=== PATIENT | female | born 1950 | race Caucasian/White ===

== ENCOUNTER 2022-10-19 07:53 | Outpatient (CLI) | payer MEDICARE, BC, SELFPAY | END 2022-10-19 07:54 | disposition home or self-care (01) | LOC: CT 07:56 | PROVIDERS: PCP Family Medicine; Visit Provider Orthopaedic Surgery Sports Medicine | DX: M75.101 Unspecified rotator cuff tear or rupture of right shoulder, not specified as traumatic (principal); M67.921 Unspecified disorder of synovium and tendon, right upper arm; M19.011 Primary osteoarthritis, right shoulder | CPT/HCPCS: 73200 ==

== ENCOUNTER 2022-11-22 09:41 | Outpatient (CLI) | payer MEDICARE, BC, SELFPAY ==
[2022-11-22 14:29] LABS: SARS PCR* Negative SARS-CoV-2 (Negative)
== END 2022-11-22 09:42 | disposition home or self-care (01) ==
PROVIDERS: PCP Family Medicine; Visit Provider Orthopaedic Surgery Sports Medicine
DX: Z01.812 Encounter for preprocedural laboratory examination (principal); Z20.822 Contact with and (suspected) exposure to COVID-19
CPT/HCPCS: 87635

== ENCOUNTER 2022-11-23 07:49 | Day surgery (SDC) | payer MEDICARE, BC, SELFPAY ==
[2022-11-23] VITALS (23 sets, daily range): BP systolic 76–144; BP diastolic 28–94; PULSE 61–83; RESP 15–16; TEMP 35.7–37; O2SAT 90–99; BMI 42.0
[2022-11-23] MEDS: LACTATED RINGERS 1000 ML 1,000 ML 100 ML IV (07:50)
[2022-11-23] MEDS: ACETAMINOPHEN 500 MG TABLET 1000 MG PO ×3 (08:08→20:49)
[2022-11-23] MEDS: CELECOXIB 200 MG CAPSULE PO (08:08)
[2022-11-23] MEDS: OXYCODONE (CR) 10 MG TAB.ER.12H PO (08:09)
[2022-11-23] MEDS: SODIUM CHLORIDE 0.9 % (FLUSH) 10 ML SYRINGE IVF (08:09)
--- NOTE | 2022-11-23 08:28 | CRLHL7_ITS ---
For Patients: As a result of the Cures Act, medical imaging exams and procedure reports are released immediately into your electronic medical record. You may view this report before your referring provider. If you have questions, please contact your health care provider. Indication: post op right total shoulder arthroplasty Technique: Two views right shoulder Findings/Impression: Hardware from a right shoulder arthroplasty is in satisfactory position. Bone alignment is normal. No sign of acute fracture. Postop changes are within normal limits. Dictated by Durga Aquino MD @ 11/23/2022 1:03:04 PM (Electronically Signed)
[2022-11-23] MEDS: MIDAZOLAM HCL 1 MG/ML inj IVP (09:31)
[2022-11-23] MEDS: fentaNYL 100 MCG/2 ML inj IVP (09:31)
--- NOTE | 2022-11-23 09:46 | SUR.PREOP ---
TIME?OUT:?0930 PT/RN/MDA?VERIFICATION?OF?SURGICAL?SITE Right Shoulder,?PROCEDURE Supraclavicular Nerve Block,?AND?CONSENT OBTAINED?PRIOR?TO?INVASIVE?PROCEDURE.
--- NOTE | 2022-11-23 09:47 | W.PM.NB ---
Nerve Block Nerve Block Time Seen by Provider: 09:30 Date Seen: 11/23/22 Type of block requested by surgeon for post-operative analgesia: supraclavicular Side: right Time out performed: Yes Verification of patient name: Yes Verification of date of : Yes Site marking: site marked Name of person performing procedure: marta Continuous monitoring Was continuous monitoring of O2 sat, B/P, vehicle monitor technician, recorded every 15 minutes?: Yes Procedure Checklist: sterile prep, needles and gloves Ultrasound guided. Images saved: Yes Medications given in 5ml increments after negative aspiration: Ropivicaine %: 0.5 mL: 20 Needle gauge: 22 Decadron (mg): 10 Precedex (mcg): 25 Patient tolerated procedure well: Yes Block Charges Block Charge (with Pro Fee): Brachial Plexus Use of Ultrasound Machine for Block: Yes- US Guidance/pain block
--- NOTE | 2022-11-23 12:06 | PM.ORPRC ---
Procedure Note Date of procedure: 11/23/22 Procedure: PREOPERATIVE DIAGNOSIS: 1. Right shoulder cuff tear arthropathy 2. Right long head of the biceps tendinopathy and tenosynovitis POSTOPERATIVE DIAGNOSIS: 1. Right shoulder cuff tear arthropathy 2. Right long head of the biceps tendinopathy and tenosynovitis PROCEDURE: 1. Right reverse shoulder arthroplasty. 2. Right long head of biceps open tenodesis SURGEON: Howie Diego MD. AMBULATORY NURSE: Roman HIDALGO - Of note, a skilled physical therapy assistant instructor was critical for this case to aid in patient positioning, tissue retraction, limb manipulation/positioning, retraction for glenoid exposure, which was challenging, awareness and protection of critical structures, and closure. ANESTHESIA: General plus supraclavicular block IMPLANTS: DJ0 surgical Altivate humeral stem size 12 small shell, short with P2 porous coating vitamin E neutral poly small socket insert RSP glenoid base plate P2 porous coating with 3 perimeter locking screws 32 neutral glenosphere with retaining screw COMPLICATIONS: None evident INDICATIONS: The patient is a pleasant 72-year-old female who has experienced severe right shoulder pain and difficulty with use. Workup included imaging which revealed severe osteoarthrosis along with concern for rotator cuff quality. Physical exam was consistent with associated pain. Given the deformity, the dysfunction, and the pain, and failure of nonoperative management, recommendation was made for surgery. DESCRIPTION OF PROCEDURE: Following a thorough discussion of risks, benefits, and alternatives, consent was obtained and the left shoulder was marked. The patient was brought to the operating room and placed supine on the operating table. Induction of anesthesia was undertaken. 2 g IV Ancef and 1 g tranexamic acid was administered within 1 hr of incision preoperatively. Appropriate time-out was performed identifying proper patient, site, and procedure. The operative extremity was prepped and draped in the appropriate sterile fashion using ChloraPrep after the patient was positioned in the lazy beach chair position with head in neutral alignment and all bony prominences well padded. A longitudinal incision was made for deltopectoral approach. Deltoid was retracted laterally. Cephalic vein was identified and retracted laterally as well. Vein was spared/protected throughout the case. The clavipectoral fascia was identified and divided longitudinally staying lateral to the conjoined tendon / coracoid. The conjoined tendon was protected with a blunt Hohmann. The long head of the biceps tendon was identified and the bicipital sheath released. The upper 1/3 of the pectoralis major was also released from its insertion. The long head of the biceps was tenodesed to the pectoralis major tendon. The remaining proximal tendon tissue was excised. The rotator cuff was inspected and found to have good integrity with the subscapularis but fair integrity with a supraspinatus], and a decision for a reverse shoulder arthroplasty was confirmed. The long head of biceps, of note, was significant flattened, thickened, with abundant tenosynovitis. A subscapularis cuff of tissue was left via tenotomy for later repair with the remaining subscapularis released in a subperiosteal fashion with the Bovie. This was tagged for later repair. The 3 sisters were cauterized. The upper subscapularis was released from the capsule with a curved Carr scissors towards the glenoid. The inferior subscapularis was divided from the capsular tissue on its caudal surface with particular caution for the axillary nerve. This was palpated anterior to the subscapularis both prior to and near the finish of the case. Inferior humeral head osteophytes were excised with caution taken throughout the case with regards to the axillary nerve. The humerus was dislocated, and humeral head cut completed. Then a protector plate was applied. We turned our attention to the glenoid. The humerus was retracted posteriorly. The subscap was protected anteriorly and the labrum/long head biceps origin was excised circumferentially. The capsule was released along the anterior and inferior portions of the glenoid cautiously with a Martinez elevator being careful not to penetrate deep. The glenoid had appropriate exposure, and was prepared with the cannulated system with a target of approximately 5-10? of inferior tilt and neutral anteversion (patient had 22 ? of retroversion initially). [Utilizing the match Point 3D printed guide, the guide pin was placed. The 3D printed jig removed and after placing the guide pin, the tap was placed followed by the glenoid reaming. The real base plate was opened, and inserted, and excellent compression/purchase was achieved with the central screw. Peripheral screws were then drilled, measured, and placed. The glenosphere was then placed consistent with the preoperative plan utilizing the above noted glenosphere. After securing the glenosphere with the locking, torque limited screw, attention was turned back to the humerus. A canal finder was placed followed by various reamers by hand. The real humeral stem was then opened and inserted with excellent metaphyseal fit and stability. Trial poly was placed and the shoulder reduced. Excellent reduction and stability achieved with appropriate tension on the conjoined tendon. At this stage, trial implants were removed, and the real implants inserted and the shoulder reduced. A 3 minute Betadine soak was performed followed by a thorough irrigation with normal saline. Subscapularis was repaired with #1 PDS to the cuff of tissue on the lesser tuberosity. Excellent reapproximation of tissue achieved. Hemostasis was found to be appropriate. The deltopectoral interval was reapproximated with 0 Vicryl, subcutaneous and subcuticular closure was then performed with number 2-0 Vicryl and 4-0 Monocryl, respectively. A skilled physical therapy assistant instructor was critical for this case to aid in patient positioning, tissue retraction, limb manipulation/positioning, retraction for glenoid exposure, which was challenging, awareness and protection of critical structures, and closure. PLAN: 1. Sling at all times for the operative upper extremity. 2. AROM of elbow, forearm, wrist, and digits as tolerated. 3. PT/OT consults for education and assistance. 4. Social consult for discharge planning. 5. 23 hr perioperative antibiotics. 6. Early ambulation, and SCDs for DVT prophylaxis. 7. Admit to the hospital for the above 8. Analgesics p.r.n.
[2022-11-23] MEDS: CEFAZOLIN 2 GM in 0.9 % SODIUM CHLORIDE Mini-bag 100 ML IVPB ×2 (12:12→18:21)
[2022-11-23] MEDS: TRANEXAMIC ACID 100 MG/ML INJ 1000 MG IV (12:13)
--- NOTE | 2022-11-23 12:43 | P.ANES_ITS ---
Anesthesia Charges Start Date/Time Anesthesia Start Date: 11/23/22 Anesthesia Start Time: 11:56 Stop Date/Time Anesthesia Stop Date: 11/23/22 Anesthesia Stop Time: 12:45 Summary Extremes of Age - Over 70 or under 1: [employer]
--- NOTE | 2022-11-23 12:44 | W.ANESCHARGE ---
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
--- NOTE | 2022-11-23 14:42 | P.IMCN_ITS ---
Date of Consult Patient: Oly Patient Consult date: 11/23/22 Requesting Physician: Orthopedics Primary Care Provider: Myla Kendall CNP Consult Narrative Reason for consult: 72-year-old female seen for management of medical problems after surgery Narrative: Sol Power is a 72 year old female who underwent right total shoulder arthroplasty under the care of Dr. Diego today. There were no operative complications. Postoperatively she is doing fairly well except she is having relatively low blood pressure. She is not feeling lightheaded, short of breath, chest pain, fever or chills. She does not take any antihypertensive medicines. Prior to surgery today she was feeling well. She has had no recent illness. Preop physical did not identify any significant medical problems. Review of Systems Narrative: Patient reports no recent illness or injury. She has no other health concerns. [facility] Medical History Arthritis ?M19.90 - Unspecified osteoarthritis, unspecified site (ICD-10) Back problem ?M53.9 - Dorsopathy, unspecified (ICD-10) Encounter for preoperative screening laboratory testing for severe acute respiratory syndrome coronavirus 2 (SARS-CoV-2) ?Z01.812 - Encounter for preprocedural laboratory examination (ICD-10) ?Z20.822 - Contact with and (suspected) exposure to covid-19 (ICD-10) Hypercholesteremia ?E78.00 - Pure hypercholesterolemia, unspecified (ICD-10) Obesity ?E66.9 - Obesity, unspecified (ICD-10) Surgical History (Updated 11/23/22 @ 14:49 by Mark Farias MD) H/O section ?Z98.891 - History of uterine scar from previous surgery (ICD-10) History of total right knee replacement (09/06/21) ?Z96.651 - Presence of right artificial knee joint (ICD-10) Family History Sister Diabetes Retinoblastoma High blood pressure Brother Diabetes Bladder cancer Father Stroke Parkinsons Mother No problems noted. Social History (Updated 11/23/22 @ 14:47 by Mark Farias MD) Narrative: She lives alone in a town home in [place]. She has 1 step to get into the house but otherwise lives on 1 level. After her knee surgery last year this went quite well. She has people were going to come and help her when she is at home. Smoking Status: Former smoker What tobacco products do you use: cigarettes Smoking quit date/years: >15 years ago Do you use any of these nicotine containing products: None Second hand tobacco smoke exposure: No How often do you have a drink containing alcohol: monthly or less Alcohol type: beer and wine How many standard drinks containing alcohol do you have on a typical day: 1 or 2 How often do you have six or more drinks on one occasion: Never AUDIT-C Alcohol total score: 1 Non-prescribed substance use: denies use Caffeine: Yes (coffee or tea 1-2 x/wk) service: No Meds Home Medications and Allergies Home Medications Medication Instructions Recorded Confirmed Type acetaminophen 500 mg tablet 500 - 1,000 mg PO Q6H PRN 03/11/22 11/23/22 History calcium carbonate 500 mg-vitamin 1 tab PO DAILY 03/11/22 11/23/22 History D3 10 mcg (400 unit) tablet glucosamine-chondroitin 250 mg-200 1 tab PO DAILY 03/11/22 11/23/22 History mg tablet (Osteo Bi-Flex) omega-3 fatty acids 1,000 mg 1,000 mg PO DAILY 03/11/22 11/23/22 History capsule pravastatin 40 mg tablet 40 mg PO HS 03/11/22 11/23/22 History vitamin A-vitamin C-vit E-min 1 tab PO DAILY 03/11/22 11/23/22 History tablet Allergies Allergy/AdvReac Type Severity Reaction Status Date / Time No Known Allergies Allergy Verified 11/23/22 07:58 Exam Narrative: Exam Narrative: She is alert and appears in no distress. She gives her own history. Head is normal. Neck is supple without mass or adenopathy. Respirations are clear to auscultation. Symmetric breath sounds comparing right to left. Cardiovascular: S1, S2, regular rate and rhythm. Right upper extremity is examined. She has ice pack on her shoulder. She has minimal motion in her fingers. Intact pulses. Slight sensation in her right fingers as well. Other 3 extremities with intact pulses sensation and motion. No edema. Abdomen is soft without tenderness or mass. Const: Vital Signs, click to edit/add: Vital Signs - 24 hr 11/23/22 08:02 11/23/22 09:30 11/23/22 09:35 Temperature 98.6 F Pulse Rate 83 70 68 Respiratory Rate 16 16 16 Blood Pressure 144/94 H 141/73 H 132/63 Pulse Oximetry 97 99 99 Oxygen Delivery Me thod Room Air Nasal Cannula Nasal Cannula Oxygen Flow Rate 2 2 11/23/22 09:40 11/23/22 12:33 11/23/22 12:38 Temperature 97.6 F Pulse Rate 67 70 71 Respiratory Rate 16 16 15 Blood Pressure 127/67 124/77 123/80 Pulse Oximetry 99 94 94 Oxygen Delivery Me thod Nasal Cannula Nasal Cannula Nasal Cannula Oxygen Flow Rate 2 3 3 11/23/22 12:43 11/23/22 12:48 11/23/22 12:53 Temperature Pulse Rate 72 68 72 Respiratory Rate 16 16 16 Blood Pressure 119/77 126/64 109/67 Pulse Oximetry 94 94 94 Oxygen Delivery Me thod Nasal Cannula Room Air Room Air Oxygen Flow Rate 3 0 11/23/22 12:58 11/23/22 13:03 Temperature 97.9 F Pulse Rate 64 70 Respiratory Rate 16 16 Blood Pressure 118/60 104/55 L Pulse Oximetry 94 94 Oxygen Delivery Me thod Room Air Room Air Oxygen Flow Rate 0 0 Documenting provider has reviewed patient's vital signs: yes Assessment and Plan Assessment and plan (1) Status post reverse arthroplasty of right shoulder: Status: Acute (2) Morbid obesity with BMI of 40.0-44.9, adult: Problem comment: BMI 40.6 Status: Acute Plan 72-year-old female status post right shoulder arthroplasty doing well. She is having effective pain control. Routine therapy and pain management. Anticipate discharge to home tomorrow. Total time spent today is 35 minutes, 20 minutes in coordination of care and discussing with patient other providers management postoperative care, pain management.
--- NOTE | 2022-11-23 18:43 | PC.NURSE ---
Pt alert and oriented x4. Pt arrived to Med/Surg floor at 1315 post right shoulder surgery. Pt had soft BP?s during the first hour after arriving to med/surg. Dr. Farias notified. Dr. Farias saw Pt and started a fluid bolus. Pt?s BP started stabilizing after the [address] Farias updated. Pt up with SBA. Pt has had no complaints of pain during shift. Pt?s IV infiltrated DC?d and new IV placed. Pt has had good oral intake and has been saline locked. Pt has voided during shift. Pt has graduated to a regular diet and tolerated well.?
[2022-11-23] MEDS: SENNOSIDES 1 TAB TABLET 2 TAB PO (20:48)
[2022-11-23] MEDS: PRAVASTATIN SODIUM 20 MG TABLET 40 MG PO (20:49)
[2022-11-23] MEDS: SODIUM CHLORIDE 0.9 % (FLUSH) 10 ML SYRINGE 5 ML IVF (21:02)
--- NOTE | 2022-11-23 23:54 | PC.NURSE ---
Pt pleasant and cooperative. Up with standby assist to bathroom and chair. States no pain. Is only taking scheduled Tylenol. Tolerating reg diet. Voiding without difficulty. VSS
[2022-11-24] MEDS: ACETAMINOPHEN 500 MG TABLET 1000 MG PO ×2 (02:33→08:17)
[2022-11-24] MEDS: CEFAZOLIN 2 GM in 0.9 % SODIUM CHLORIDE Mini-bag 100 ML IVPB (02:33)
[2022-11-24 03:00] VITALS: BP 148/65; PULSE 69; RESP 16; TEMP 35.9; O2SAT 95
--- NOTE | 2022-11-24 05:36 | PC.NURSE ---
[id number] Pt slept on and off during night, denies pain to right arm/shoulder. Sensation present to touch, Dressing C/D/I, cyro cuff to R shoulder throughout shift. Pt denies N/V, chest pain, sob, or headache. Pulse present to R extremity, < 3 sec cap refills, pt able to wiggle fingers. Sling in place during night. Ambulating indep/SBA to BR, denies light headed or dizziness when getting up.
[2022-11-24 07:00] VITALS: BP 152/83; PULSE 75; RESP 16; TEMP 35.9; O2SAT 94
[2022-11-24 07:14] LABS: Hematocrit 34.8 % (33.0-51.0); Hemoglobin* 11.9 gm/dL (12.0-16.0); Mean Corpuscular HGB Conc 34 gm/dL (32-36); Mean Corpuscular Hemoglobin 31 pg (26-34); Mean Corpuscular Volume 91 fL (80-100); Platelet Count* 252 K/uL (140-440); Red Blood Count 3.84 m/uL (4.00-5.20); White Blood Count* 9.91 K/uL (4.50-11.00)
[2022-11-24 07:36] LABS: Sodium* 137 mmol/L (135-149)
[2022-11-24 07:37] LABS: Slide Review Reflex No
[2022-11-24 07:39] LABS: Blood Urea Nitrogen* 11 mg/dL (7-30); Creatinine* 0.7 mg/dL (0.5-1.5); Est. Creatinine Clearance* 43.91; Estimated Glomerular Filt Rate 92 ml/min; Potassium* 4.1 mmol/L (3.6-5.1)
[2022-11-24] MEDS: SENNOSIDES 1 TAB TABLET 2 TAB PO ×2 (08:16→08:18)
[2022-11-24] MEDS: OXYCODONE 5 MG TABLET PO (08:18)
--- NOTE | 2022-11-24 09:15 | PM.ORPN ---
Subjective Subjective Date Seen: 11/24/22 Principal diagnosis: Status postop day 1 right reverse total shoulder arthroplasty Interval history: Patient reports doing well. No acute events over night. Pain managed with scheduled /PRN medications and ice. DVT prophylaxis includes bilateral knee high Toño stockings, and SCDs. Denies fevers, chills, aches, N/V, CP, SOB/MARTINEZ, tachycardia, or lightheadedness. Ortho Exam Narrative Exam Narrative: -Patient appears comfortable in recliner; no apparent acute distress -Alert and oriented times 3 -Operative shoulder swollen; soft, supple tissues; no obvious erythema. Ecchymosis minimal distal proximal arm. Warmth appropriate -Surgical dressing clean, dry, intact; no obvious drainage, no erythematous streaking peripheral to the bandage -Bilateral calves soft and supple; no significant swelling, edema, tenderness, erythema, discoloration, warmth, or palpable cords -2+ radial pulse, intact dermatomes and myotomes distally Const Vital Signs, click to edit/add: Vital Signs - 24 hr 11/23/22 09:30 11/23/22 09:35 11/23/22 09:40 Temperature Pulse Rate 70 68 67 Pulse Rate [Right Pulse Oximeter] Respiratory Rate 16 16 16 Blood Pressure 141/73 H 132/63 127/67 Blood Pressure [Left Arm] Pulse Oximetry 99 99 99 Oxygen Delivery Method Nasal Cannula Nasal Cannula Nasal Cannula Oxygen Flow Rate 2 2 2 11/23/22 12:33 11/23/22 12:38 11/23/22 12:43 Temperature 97.6 F Pulse Rate 70 71 72 Pulse Rate [Right Pulse Oximeter] Respiratory Rate 16 15 16 Blood Pressure 124/77 123/80 119/77 Blood Pressure [Left Arm] Pulse Oximetry 94 94 94 Oxygen Delivery Method Nasal Cannula Nasal Cannula Nasal Cannula Oxygen Flow Rate 3 3 3 11/23/22 12:48 11/23/22 12:53 11/23/22 12:58 Temperature Pulse Rate 68 72 64 Pulse Rate [Right Pulse Oximeter] Respiratory Rate 16 16 16 Blood Pressure 126/64 109/67 118/60 Blood Pressure [Left Arm] Pulse Oximetry 94 94 94 Oxygen Delivery Method Room Air Room Air Room Air Oxygen Flow Rate 0 0 11/23/22 13:03 11/23/22 13:15 11/23/22 13:15 Temperature 97.9 F 96.2 F L 96.2 F L Pulse Rate 70 66 Pulse Rate [Right Pulse Oximeter] 66 Respiratory Rate 16 16 16 Blood Pressure 104/55 L Blood Pressure [Left Arm] 94/57 L 94/57 L Pulse Oximetry 94 91 Oxygen Delivery Method Room Air Room Air Oxygen Flow Rate 0 11/23/22 13:15 11/23/22 13:30 11/23/22 13:45 Temperature 96.2 F L 96.2 F L 96.2 F L Pulse Rate Pulse Rate [Right Pulse Oximeter] 66 76 61 Respiratory Rate 16 16 16 Blood Pressure Blood Pressure [Left Arm] 94/57 L 77/28 L 90/67 Pulse Oximetry 91 91 91 Oxygen Delivery Method Room Air Room Air Room Air Oxygen Flow Rate 0 0 11/23/22 14:00 11/23/22 14:15 11/23/22 14:45 Temperature 96.2 F L 96.6 F L 96.6 F L Pulse Rate Pulse Rate [Right Pulse Oximeter] 76 65 63 Respiratory Rate 16 16 16 Blood Pressure Blood Pressure [Left Arm] 76/47 L 110/87 121/58 L Pulse Oximetry 91 91 91 Oxygen Delivery Method Room Air Room Air Room Air Oxygen Flow Rate 0 0 0 11/23/22 15:00 11/23/22 16:00 11/23/22 17:00 Temperature 96.7 F L 96.7 F L 96.7 F L Pulse Rate Pulse Rate [Right Pulse Oximeter] 71 72 75 Respiratory Rate 16 16 16 Blood Pressure Blood Pressure [Left Arm] 115/60 137/80 130/67 Pulse Oximetry 93 93 93 Oxygen Delivery Method Room Air Room Air Room Air Oxygen Flow Rate 0 0 0 11/23/22 18:00 11/23/22 19:00 11/23/22 19:00 Temperature 97.7 F 97.9 F 96.7 F L Pulse Rate Pulse Rate [Right Pulse Oximeter] 76 68 72 Respiratory Rate 16 16 16 Blood Pressure Blood Pressure [Left Arm] 124/89 105/63 132/67 Pulse Oximetry 92 92 93 Oxygen Delivery Method Room Air Room Air Room Air Oxygen Flow Rate 0 0 11/23/22 23:00 11/24/22 03:00 11/24/22 07:00 Temperature 96.8 F L 96.6 F L Pulse Rate Pulse Rate [Right Pulse Oximeter] 72 69 75 Respiratory Rate 16 16 16 Blood Pressure Blood Pressure [Left Arm] 136/83 148/65 H Pulse Oximetry 90 95 Oxygen Delivery Method Room Air Room Air Oxygen Flow Rate 0 0 11/24/22 07:00 Temperature 96.7 F L Pulse Rate Pulse Rate [Right Pulse Oximeter] 75 Respiratory Rate 16 Blood Pressure Blood Pressure [Left Arm] 152/83 H Pulse Oximetry 94 Oxygen Delivery Method Room Air Oxygen Flow Rate 0 Assessment and Plan Assessment and plan (1) Status post reverse arthroplasty of right shoulder: Problem details: Right reverse shoulder arthroplasty, and long head of biceps open tenodesis (11/23/2022, Dr. Diego) Status: Acute (2) Morbid obesity with BMI of 40.0-44.9, adult: Problem details: BMI 40.6 Status: Acute Plan - Complete 23 hour perioperative antibiotics. - PT/OT consult for education and assistance. - Social work consult for discharge planning - Prescribed analgesics as needed - DVT prophylaxis: Bilateral knee high Toño Hose stockings and SCDs - Anticipation is for discharge to home with family 11/24/2022 if the patient remains medically stable, pain is controlled, and they are safe with mobilization.
--- NOTE | 2022-11-24 09:19 | P.DS_ITS ---
DS: Providers Provider Date Seen: 11/24/22 Date of admission: Med/Surg Recovery 11/23/2022 Primary care physician: Myla Kendall CNP Consults: 11/23/22 13:53 Consult to Occupational Therapy [CONS] Routine Comment: Reason(s) for OT Consult:: Evaluate and Treat Any Restrictions?:: See Comment Comment: ROM elbow, forearm, wrist, digits PRN Shoulder pendulums okay No active shoulder ROM Consult to Physical Therapy [CONS] Routine Comment: Reason(s) for PT Consult:: Evaluate and Treat Any Restrictions?:: No Restrictions Consult to Physician [CONS] Routine Comment: Consulting Provider: Hospitalists Has provider been notified: No Consult to Manager Grocery [CONS] Routine Comment: Reason for Consult:: Discharge Planning Needs Attending Physician on discharge: Howie Diego MD Date of Discharge: 11/24/22 DS: Diagnosis Discharge Diagnosis (1) Status post reverse arthroplasty of right shoulder: Status: Acute Problem details: Right reverse shoulder arthroplasty, and long head of biceps open tenodesis (11/23/2022, Dr. Diego) DS: Summary Hospital Course Hospital Course: The patient has a history of right shoulder cuff tear arthropathy. After appropriate preoperative evaluation, the patient underwent right reverse total shoulder arthroplasty and long head biceps tenodesis. Postoperatively they progressed to PT/OT and were felt ready and prepared for discharge to home with appropriate pain medication and anticoagulation medications. Status at Discharge Functional status at discharge: independent ambulation Overall status at discharge: patient is progressing back to baseline Time Spent with Patient Time attestation: Total time spent providing and/or coordinating discharge services: Time spent: Less than 30 minutes Exam Const: Vital Signs, click to edit/add: Vital Signs - 24 hr 11/23/22 09:30 11/23/22 09:35 11/23/22 09:40 Temperature Pulse Rate 70 68 67 Pulse Rate [Right Pulse Oximeter] Respiratory Rate 16 16 16 Blood Pressure 141/73 H 132/63 127/67 Blood Pressure [Le ft Arm] Pulse Oximetry 99 99 99 Oxygen Delivery Me thod Nasal Cannula Nasal Cannula Nasal Cannula Oxygen Flow Rate 2 2 2 11/23/22 12:33 11/23/22 12:38 11/23/22 12:43 Temperature 97.6 F Pulse Rate 70 71 72 Pulse Rate [Right Pulse Oximeter] Respiratory Rate 16 15 16 Blood Pressure 124/77 123/80 119/77 Blood Pressure [Le ft Arm] Pulse Oximetry 94 94 94 Oxygen Delivery Me thod Nasal Cannula Nasal Cannula Nasal Cannula Oxygen Flow Rate 3 3 3 11/23/22 12:48 11/23/22 12:53 11/23/22 12:58 Temperature Pulse Rate 68 72 64 Pulse Rate [Right Pulse Oximeter] Respiratory Rate 16 16 16 Blood Pressure 126/64 109/67 118/60 Blood Pressure [Le ft Arm] Pulse Oximetry 94 94 94 Oxygen Delivery Me thod Room Air Room Air Room Air Oxygen Flow Rate 0 0 11/23/22 13:03 11/23/22 13:15 11/23/22 13:15 Temperature 97.9 F 96.2 F L 96.2 F L Pulse Rate 70 66 Pulse Rate [Right Pulse Oximeter] 66 Respiratory Rate 16 16 16 Blood Pressure 104/55 L Blood Pressure [Le ft Arm] 94/57 L 94/57 L Pulse Oximetry 94 91 Oxygen Delivery Me thod Room Air Room Air Oxygen Flow Rate 0 11/23/22 13:15 11/23/22 13:30 11/23/22 13:45 Temperature 96.2 F L 96.2 F L 96.2 F L Pulse Rate Pulse Rate [Right Pulse Oximeter] 66 76 61 Respiratory Rate 16 16 16 Blood Pressure Blood Pressure [Le ft Arm] 94/57 L 77/28 L 90/67 Pulse Oximetry 91 91 91 Oxygen Delivery Me thod Room Air Room Air Room Air Oxygen Flow Rate 0 0 11/23/22 14:00 11/23/22 14:15 11/23/22 14:45 Temperature 96.2 F L 96.6 F L 96.6 F L Pulse Rate Pulse Rate [Right Pulse Oximeter] 76 65 63 Respiratory Rate 16 16 16 Blood Pressure Blood Pressure [Le ft Arm] 76/47 L 110/87 121/58 L Pulse Oximetry 91 91 91 Oxygen Delivery Me thod Room Air Room Air Room Air Oxygen Flow Rate 0 0 0 11/23/22 15:00 11/23/22 16:00 11/23/22 17:00 Temperature 96.7 F L 96.7 F L 96.7 F L Pulse Rate Pulse Rate [Right Pulse Oximeter] 71 72 75 Respiratory Rate 16 16 16 Blood Pressure Blood Pressure [Le ft Arm] 115/60 137/80 130/67 Pulse Oximetry 93 93 93 Oxygen Delivery Me thod Room Air Room Air Room Air Oxygen Flow Rate 0 0 0 11/23/22 18:00 11/23/22 19:00 11/23/22 19:00 Temperature 97.7 F 97.9 F 96.7 F L Pulse Rate Pulse Rate [Right Pulse Oximeter] 76 68 72 Respiratory Rate 16 16 16 Blood Pressure Blood Pressure [Le ft Arm] 124/89 105/63 132/67 Pulse Oximetry 92 92 93 Oxygen Delivery Me thod Room Air Room Air Room Air Oxygen Flow Rate 0 0 11/23/22 23:00 11/24/22 03:00 11/24/22 07:00 Temperature 96.8 F L 96.6 F L Pulse Rate Pulse Rate [Right Pulse Oximeter] 72 69 75 Respiratory Rate 16 16 16 Blood Pressure Blood Pressure [Le ft Arm] 136/83 148/65 H Pulse Oximetry 90 95 Oxygen Delivery Me thod Room Air Room Air Oxygen Flow Rate 0 0 11/24/22 07:00 Temperature 96.7 F L Pulse Rate Pulse Rate [Right Pulse Oximeter] 75 Respiratory Rate 16 Blood Pressure Blood Pressure [Le ft Arm] 152/83 H Pulse Oximetry 94 Oxygen Delivery Me thod Room Air Oxygen Flow Rate 0 DS: Data Data Completed and Pending Labs on day of discharge: Labs from last 24 hours 11/24/22 06:58 WBC 9.91 RBC 3.84 L Hgb 11.9 L Hct 34.8 MCV 91 MCH 31 MCHC 34 Plt Count 252 Sodium 137 Potassium 4.1 BUN 11 Creatinine 0.7 Estimated Creat Clear 43.91 Estimated GFR 92 Discharge Plan Discharge Disposition: Home, Self-Care Discharging Surgeon: Howie Diego Follow-Up Appointment: 1 week PO with Jermaine COVINGTON Prescriptions: New sennosides-docusate sodium [Senna-S] 8.6-50 mg tablet 1 - 4 tab-cap PO BID PRN (Reason: constipation) Qty: 60 0RF Rx Instructions: Hold medication if experiencing loose stools. oxycodone 5 mg tablet 2.5 - 5 mg PO Q4-6H MDD 6 PRN (Reason: pain) Qty: 42 0RF Rx Instructions: Take as needed for postop pain: 2.5mg mild pain, 5mg moderate-severe pain; wean as tolerated. Continued calcium carbonate-vitamin D3 500 mg-10 mcg (400 unit) tablet 1 tab PO DAILY pravastatin 40 mg tablet 40 mg PO HS omega-3 fatty acids 1,000 mg capsule 1,000 mg PO DAILY vitamin A-vitamin C-vit E-min Tablet 1 tab PO DAILY glucosamine-chondroitin [Osteo Bi-Flex] 250-200 mg tablet 1 tab PO DAILY acetaminophen 500 mg tablet 500 - 1,000 mg PO Q6H PRN Activity Level: Activity as Tolerated Activity Detail: Wound: ?Do not remove original dressing; we will remove this at first postop visit in 1 week. Only remove dressing if integrity is in question. ?No immersing wound in water; showering okay; light scrub with your hand and body soap, rinse, dab dry ?Sutures are under the skin, will dissolve; allow surgical glue to come off naturally; do not scrub the wound or apply ointments/lotions ?Call our office with any redness that streaks, excessive drainage from the wound, or wound gapping. Sling: ?Wear at all times unless performing elbow range of motion, or to bathe. No weightbearing operative upper extremity. Ice/Elevate: ?Ice as needed for swelling and discomfort (cryocuff or ice pack); elevate hand/forearm about heart if possible XIANG socks: ?Wear for 1 month, remove for 1 hour 3 times per day ?These are frustrating to take on/off, but are important for blood clot prevention for 1 month after surgery even though this was an upper extremity surgery. Driving: ?Do not drive while taking narcotic pain medication ?Anticipate a few weeks of no driving if you feel uncomfortable driving with one arm Dental: ?No elective dental work for 6 months post-op. If there is an urgent/emergent dental need, contact our office for an antibiotic prescription. Smoking/Alcohol: ?Do not smoke; do no drink alcohol especially when taking postoperative oral narcotic medication Seek Care from you Primary Care Provider if you experience the following issues in the postoperative phase and beyond: ?Bacterial infections such as: pneumonia, bacterial skin infection (cellulitis), UTI, high fever, chills unrelated to the operative body part - call your primary care physician urgently for treatment in hopes to protect your health and the metal implant. Referrals: ?PT, OT per patient preference - evaluate treat reverse total shoulder arthroplasty protocol (ROM, ADLs) Follow up: ?Ortho surgeon follow-up in 6 weeks; repeat radiographs three views operative shoulder ?[facility] visit in 1 week *If there are any acute concerns regarding your surgery, please call our orthopedic clinic ([phone]) Discharge Diet: Regular Patient Instructions: Oxycodone, Rapid Release (By mouth), Senna (By mouth), Surgical Site Infections (DC), Shoulder Arthroplasty (DC) Forms: Work/School Release Follow-up: Myla Kendall CNP [Primary Care Provider] - Jermaine Avila PA-C [Physician Structural Steel Engineer] - 12/02/22 9:10 am ([facility] follow up with Jermaine RAYMOND.) Discharge Orders: Discharge Order (Routine); Ordered 11/24/22 Ordered By: Jermaine Avila
[2022-11-24 09:20] VITALS: BP 104/55; PULSE 66; RESP 16; TEMP 35.9
--- NOTE | 2022-11-24 09:47 | PC.SOCIAL ---
Met with pt and pt's brother in pt's room. Pt states that she is prepared at home to recover and has assistance from her brother today, then will have assistance from her daughter the next three days. Pt is able to call family members at any time beyond the next four days. There are no identified needs from Social Work at this time. Pt may reach out to social work with any additional questions.
--- NOTE | 2022-11-24 09:58 | PC.NURSE ---
DISCHARGE: Pt. alert and oriented x4. Pt. denied N/V/SOB and rated pain 4/10. PRN oxy administered prior to therapy and pt. tolerated well. Pt's right shoulder in sling, cryo cuff to op site. dressing is C/D/I and minimal bruising noted on right arm distal to dressing. Pt. discharged today at 0943, accompanied by brother. IV removed intact and discharge instructions and belongings sheet signed. Pt. verbalized understanding of discharge instructions.
== END 2022-11-24 09:43 | disposition home or self-care (01) ==
LOC: OR 07:49 → MEDSURG 07:53
PROVIDERS: PCP Family Medicine; Visit Provider Orthopaedic Surgery Sports Medicine
PROC: 0RRJ0JZ Replacement of Right Shoulder Joint with Synthetic Substitute, Open Approach (ICD-10-PCS; CPT 23472; principal; 2022-11-23 10:00)
DX: M75.101 Unspecified rotator cuff tear or rupture of right shoulder, not specified as traumatic (principal); M75.21 Bicipital tendinitis, right shoulder; E66.01 Morbid (severe) obesity due to excess calories; Z68.41 Body mass index [BMI] 40.0-44.9, adult
CPT/HCPCS: 23472; 23430; 01638; 36415; 64415; 73030; 76942; 82565; 84132; 84295; 84520; 85027; 97110; 97116; 97161; 97165; 97535; 99100; A9270; C1713; C1776; J0330; J0690; J1100; J2250; J2370; J2704; J2795; J3010; J3490; J7120

== ENCOUNTER 2023-03-14 08:00 | Outpatient (RCR) | payer MEDICARE, BC, SELFPAY ==
--- NOTE | 2022-11-14 20:57 | OT.OPGNE ---
OT Outpatient General/Neuro Eval OT Outpatient General/Neuro Eval Start: 11/11/22 15:34 Freq: Status: Active Protocol: Document 11/11/22 15:34 SMW (Rec: 11/11/22 15:35 SMW [id number]) E-signed By Tanisha Abrams OT OT Outpatient Evaluation Details Type Type Eval Complexity Low Insurance Information Insurance Information Insurance Information Blue [employer] Outpatient History/Precautions Medical/Functional History Medical History Reviewed Yes Prior Level of Function/Mobility Patient lives alone. Patient previously I in all ADLS and mobility. 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 Assessment Assessment Assessment Patient is a 72 year old female referred to outpatient OT for a pre-op for an upcoming RTSA. The patient is left hand dominant. She lives alone, however will have taxi servicer assistance for 4-5 days and partial assistance if needed after that indefinitely . She lives in a ramble style home. She was educated on one handed dressing techniques, post op exercises, sling management, positioning and general shoulder replacement questions. She asked pertinent questions and was able to take notes as needed. Occupational Therapy Treatment Plan - OP Set Goals Goals Set with Patient Yes Goals Goals Within one visit, the patient will be educated on.. 1. one handed dressing techniques, post op exercises, sling management, positioning . goal met Progress met Treatment Plan Treatment Plan Evaluation,Self-Care/Home Management Certification Certification I Certify That: Therapy Services Provided, Therapy Plan Established, Therapy Plan Reviewed Recertification Information Recertification Information Initial Certification Date 11/11/22 Recertification Start Date 11/11/22 Provider Signature Shows Agreement With POC & Medical Necessity Physician Comment/Change Comment or Changes Physician NPI Number #
--- NOTE | 2022-12-09 14:52 | PT.OPEX ---
PT [facility] Outpatient Eval INITIAL EVAL MEDICARE PATIENT REQUIRES SIGNATURE PT [facility] Eval Start: 12/09/22 12:32 Freq: Status: Active Protocol: Document 12/09/22 12:32 NEIL (Rec: 12/09/22 14:50 NEIL [id number]) E-signed By Julio Thompson DPT Physical Therapy Outpatient Evaluation Insurance Information Recert Due Date 03/04/23 Insurance Name Medicare B,[employer] Medical Diagnosis R reverse total shoulder arthroplasty dos 11/23/22 Treating Diagnosis r shoulder pain, muscle weakness limited rom Referring MD may shi Subjective Subjective Glenna comes into 2.5 weeks post op R RTSA. States she has not had much pain the past week which is surprising to her. She is sleeping in a recliner and couch. Has been trying to do some HEP from the hospital PT and thinks they are going well but has some questions on proper technique. Is left hand dominant but does want to get back to using it for driving, ADLS, and sleeping on the R side. Precautions Treatment Precautions/Contraindications sling 6 weeks AAROM at 4-6 weeks Objective Other/Pertinent Objective SHOULDER AROM WNL on L PROM R Flexion: R 110 Abduction:R 95 External Rotation: R 15 degrees in neutral NECK/SHOULDER MMT: WNL on L deferred on L due to precautions TX: pendulums x20 cw, x20 ccw scap sets x 15 counter walk aways into flexion x 10 into scaption x 10 table slides into flexion x10, skilled PROM with stretching at end range to shoulder flexion scaption as tolerated , performed multiple times Assessment Assessment/Impression POST-OP Patient presents with signs and symptoms consistent with diagnosis of R RTSA , s/p 2.5 week post operative. Rehab potential is good. Ward impairments include: decreased ROM and strength of the extremity, and pain/ limitations with functional activities such as lifting reaching pushing pulling carrying driving sleeping . Skilled PT is required to address these ward impairments and to provide and progress with an appropriate home exercise program. 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 within 8 weeks Patient will report/ demonstrate ability to drive 30-45 minutes for community transportation within 8 weeks. 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 Pt will be able to don and doff clothes and brush hair ind without pain within 16 weeks Pt will be independent with HEP within 16 weeks to allow for independence and continued improvement past formal therapy Coordination/Communication With Referral Source Treatment Plan/Direct Interventions Joint Mobilization,Manual Therapy,Neuromuscular Re-ed, Self-Care/Home Management, Therapeutic Activities, Therapeutic Exercises Patient Will Be Discharged From Therapy Completion of LTG(s), Independent w/HEP Evaluation Billing Untimed Code Treatment Minutes 20 Complexity Low Certification Information Initial Certification Date 12/09/22 Ending Certification Date 03/04/23 Physician Comment/Change : Physician NPI Number #
== END 2023-03-14 09:58 | disposition home or self-care (01) ==
PROVIDERS: PCP Family Medicine; Visit Provider Orthopaedic Surgery Sports Medicine
DX: M75.101 Unspecified rotator cuff tear or rupture of right shoulder, not specified as traumatic (principal); M67.921 Unspecified disorder of synovium and tendon, right upper arm; M19.011 Primary osteoarthritis, right shoulder; Z51.89 Encounter for other specified aftercare
CPT/HCPCS: 97012; 97110; 97140; 97161; 97165; 97535

== ENCOUNTER 2024-11-20 09:58 | Outpatient (CLI) | payer MEDICARE, BC, SELFPAY ==
--- NOTE | 2024-11-20 10:15 | CRLHL7_ITS ---
For Patients: As a result of the Century Cures Act, medical imaging exams and procedure reports are released immediately into your electronic medical record. You may view this report before your referring provider. If you have questions, please contact your health care provider. Indication: Right hip pain Comparison: 10/15/2024 Procedure : Informed consent was obtained. The site was marked. Time-out was performed. The skin of the right hip was cleansed with ChloraPrep. A sterile drape was placed. 8 cc of 1 percent lidocaine was administered for superficial anesthesia. Subsequently a 22 gauge spinal needle was introduced into the right hip joint under intermittent fluoroscopic guidance. Injection of 5 cc nonionic Omnipaque 240 contrast confirmed intra-articular location. Subsequently 7 cc of 1 percent lidocaine and 2 cc of 40 milligram/cc Depo-Medrol was then injected into the right hip joint. The needle was removed and hemostasis achieved with direct pressure. A dressing was placed. The patient tolerated the procedure well without immediate complication. Total fluoroscopy time 1.13 minutes. Impression: Successful fluoroscopically guided right hip injection with 80 milligrams of Depo-Medrol. Moderately severe degenerative joint disease noted with degenerative changes involving the synovium. Dictated by Durga Aquino MD @ 11/20/2024 1:13:50 PM (Electronically Signed)
== END 2024-11-20 09:59 | disposition home or self-care (01) ==
LOC: RAD 09:59
PROVIDERS: PCP Family Medicine; Visit Provider Physician Assistant Surgical
DX: M16.11 Unilateral primary osteoarthritis, right hip (principal); M25.551 Pain in right hip
CPT/HCPCS: 20610; 77002; Q9966

== ENCOUNTER 2024-12-26 09:45 | Outpatient (RCR) | payer MEDICARE, BC, SELFPAY ==
--- NOTE | 2024-12-26 10:33 | PT.OPDNX ---
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 Pain in hip was better after taking out side step exercise. -With land based exercise could get to fatigue without pain onset! -With machines at the gym couldn't increase load with hip abduction and knee extension - was too heavy and couldn't do it. -Pool this week has been going . With back stepping going slower but could feel more glut coordination. -Doing bike up to 12 minutes. -Walking around house must use the cane - comes from weakness and pain -Did make appt with spine doctor. Home Exercise Home Exercise Comments Access Code: [email or web address] URL: [email or web address] Date: 10/22/2024 Prepared by: Dannielle Burgos Exercises - Prone Gluteal Sets - 1-2 x daily - 4-5 x weekly - 12-15 reps - 5 sec hold - strength mobility exercise type - Prone Hip Internal and External Rotation AROM - 1-2 x daily - 4-5 x weekly - 10 reps - strength mobility exercise type - Modified Prone Quadriceps Stretch with Strap - 1-2 x daily - 4-5 x weekly - 2-3 reps - 30-45 sec hold - strength mobility exercise type Access Code: [email or web address] URL: [email or web address] Date: 11/14/2024 Prepared by: Dannielle Burgos Exercises - Forward Walking - 1 x daily - 7 x weekly - 2 sets - 5-10 min hold - Mini Squat with Counter Support - 1 x daily - 2-3 x weekly - 2 sets - 8-10 reps - strength exercise type - Standing Hip Abduction - 1 x daily - 2-3 x weekly - 2 sets - 8-10 reps - strength exercise type - Standing March with Counter Support - 1 x daily - 2-3 x weekly - 2 sets - 8-10 reps - mobility exercise type Objective Other/Pertinent Objective Posture: inc?d APT Palpation: hypersensitivity with TTP over greater trochanter. Reduced TTP just posterior to greater trochanter and 1-2 inches of ITB around bony prominence. SLS (30 sec): unable without LOB significant pelvic drop Gait: lateral trunk lean to the R with WB through R LE. Pelvic drop noted RANGE OF MOTION: LE ROM (R/L): -Hip ER90: 60 L / 70 R -Hip IR90: 10 L / 0 R -Hip flex: 120 L / 90 R -Hip Abd supine: limited -Hip ext: lacking nearly 20* from neutral on R side STRENGTH: LE Strength (R/L) -Glut medius 2+ based on functional mobility -Knee extension: 4- R / 4+ L -Hip flexion 2 R / 2+ L SPECIAL TESTS: LE Flexibility (R/L) -Hamstring: -/- -Piriformis: +/+ -Prone knee bend: +/+ -Hip abd: +/+ -Mark Test: + tested supine unable to get hip extended without pain, hip flexion nearly 20* Patient Instructed in Risks/Benefits Yes Therapeutic Exercise Therapeutic Exercise Minutes (minutes) 40 Therapeutic Exercise: To Restore TE: Indicated for improvement Functional Status in strengthening and mobility. -Handouts with written instructions and photographs of exercises were issued to the patient for exercises to be included in HEP. Answered patient questions regarding POC, and mobility/stretches to perform if pain occurs -NuStep WL 3, UE 9, seat 10 x 8 min -Back ext machine 40# x 10 reps. 50# x 10 reps Cable machine -Standing sh ext 7.5 load bilat x 10 reps -Standing rows staggered 7.5 load x 10 reps -Seated bicep curl 5# 2 x 10 reps bilat -Seated UE press in front of body yellow wand 2 x 8 reps Treatment Minutes Timed Code Treatment Minutes 40 Total Treatment Time 40 Billing Units Therapeutic Exercise Units 3 Assessment/Impression Assessment/Impression No pain flare during session. Near maximal cues for breathing technique with all exercises. Targeted improving pt awareness of core engagement with all exercises while focusing on coordination of TA with movement. Pt to trial different cable exercises at the gym as able. Plan of Care Physical Therapy Goals STG (within 6 visits) 1) Pt will initiate HEP without increased pain/ symptoms - MET 2) Pt will demonstrate ability to isometrically activate TA and gluts with minimal compensations in order to improve lumbopelvic stability - prorgressing toward 3) Pt will complete 6 MWT with no more than x 5 breaks using least restrictive assistive device pain not exceeding 5/10 for improved community mobility - UNMET, pain limiting LTG (within 12 visits) 1) Pt will be indep with HEP for shelter management of pain/symptoms - UNMET 2) Pt will report at least 60% improvement in pain/symptoms since start of PT for return to PLOF - UNMET 3) Pt will demonstrate improved R hip PROM Extension at least 10* without end range pain/pinch degrees for improved gait mechanics - UNMET 4) Pt will complete 6 MWT with no more than x 3 breaks using least restrictive assistive device pain not exceeding 3/10 for improved community mobility - UNMET 5) Pt will demonstrate ability to ascend/descend at least x 4 steps using step to pattern without LOB to improve stability to enter/exit the pool - MET Daily Plan of Care Comments Review water based exercises and progress as able. Glut activation back stepping? *MT effectiveness, continue as indicated Recertification Information Initial Certification Date 10/22/24 Recertification Start Date 12/27/24 Recertification Due Date 03/27/25 Reasons to Continue Skilled Therapy Pt had been seen for right hip pain, right hip stiffness, difficulty walking for 10 visits from 10/22/24 to 12/26/24 during this episode of physical therapy. Focus of therapy on hip/spine ROM, gait training with 4WW, proximal strengthening of TA and gluts Interventions including ther exercise, manual therapy, self -care, neuromuscular re- education. Pt at this time has not met all short/termite treater goals and is not yet independent with HEP. Continued skilled PT is indicated at this time as maximal therapeutic improvement has not yet been reached. Pt to benefit from ongoing therapy at a frequency of 1x/wk for an additional 8 visits within 90 days. Progress through therapy has been slowed as pt had frequent pain recurrences during her sessions requiring frequent modification of exercise completion. See goal progress above Provider Signature Shows Agreement With POC & Medical Necessity Physician Comment/Change Comment or Changes Physician NPI Number #
== END 2025-04-23 10:45 | disposition home or self-care (01) ==
PROVIDERS: PCP Family Medicine; Visit Provider Physician Assistant Surgical
DX: M25.551 Pain in right hip (principal); M16.11 Unilateral primary osteoarthritis, right hip; Z51.89 Encounter for other specified aftercare
CPT/HCPCS: 97110; 97116; 97140; 97162

== ENCOUNTER 2025-05-21 06:45 | Day surgery (SDC) | payer MEDICARE, BC, SELFPAY ==
[2025-05-21] VITALS (29 sets, daily range): BP systolic 89–131; BP diastolic 53–91; PULSE 56–76; RESP 12–24; TEMP 36.3–37.6; O2SAT 91–98; BMI 41.2
[2025-05-21] MEDS: LACTATED RINGERS 1000 ML 1,000 ML 100 ML IV ×2 (06:45→12:03)
--- NOTE | 2025-05-21 07:03 | W.PM.H&PU ---
History & Physical Update History & Physical Update H&P Reviewed and patient assessed: No changes noted
--- NOTE | 2025-05-21 07:14 | CRLHL7_ITS ---
For Patients: As a result of the Cures Act, medical imaging exams and procedure reports are released immediately into your electronic medical record. You may view this report before your referring provider. If you have questions, please contact your health care provider. Indication: Post op right MICHAEL Technique: AP hip centered pelvis and lateral view right hip Findings/Impression: Hardware from a right total hip arthroplasty is in satisfactory position. Bone alignment is normal. No sign of acute fracture. Postop changes are within normal limits. Dictated by Durga Aquino MD @ 05/21/2025 12:48:51 PM (Electronically Signed)
[2025-05-21] MEDS: SODIUM CHLORIDE 0.9 % (FLUSH) 10 ML SYRINGE IVF ×3 (07:40→12:14)
[2025-05-21] MEDS: OXYCODONE (CR) 10 MG TAB.ER.12H PO (07:55)
[2025-05-21] MEDS: ACETAMINOPHEN 500 MG TABLET 1000 MG PO ×3 (07:55→20:43)
[2025-05-21] MEDS: MIDAZOLAM HCL 1 MG/ML inj IVP (07:58)
--- NOTE | 2025-05-21 07:59 | SUR.PREOP ---
TIME?OUT:?0757 PT/RN/MDA?VERIFICATION?OF?SURGICAL?SITE,?PROCEDURE,?AND?CONSENT OBTAINED?PRIOR?TO?INVASIVE?PROCEDURE. all in agreement
--- NOTE | 2025-05-21 09:00 | CRLHL7_ITS ---
For Patients: As a result of the Cures Act, medical imaging exams and procedure reports are released immediately into your electronic medical record. You may view this report before your referring provider. If you have questions, please contact your health care provider. Indication: Hip replacement surgery Technique: AP hip fluoroscopic image. Fluoroscopy time 48.4 seconds. Findings/Impression: Hardware from a right total hip arthroplasty is in satisfactory position. Dictated by Durga Aquino MD @ 05/21/2025 12:43:54 PM (Electronically Signed)
[2025-05-21] MEDS: TRANEXAMIC ACID 100 MG/ML INJ 1000 MG IV (09:10)
[2025-05-21] MEDS: LACTATED RINGERS 1000 ML 1,000 ML 125 ML IV (09:15)
--- NOTE | 2025-05-21 10:38 | PM.ORPRC ---
Procedure Note Date of procedure: 05/21/25 Procedure: PREOPERATIVE DIAGNOSIS: 1. Right hip osteoarthritis, severe, primary POSTOPERATIVE DIAGNOSIS: 1. Right hip osteoarthritis, severe, primary PROCEDURE: 1. Right total hip arthroplasty-anterior approach - 33% added time and difficulty for this case due to the patient's body habitus. BMI 41.2 (morbidly obese) along with 4 cm of subcutaneous fat prior to accessing the deeper muscular fascia required longer retractors and more assistants to complete the case 2. 45635 - intraoperative fluoroscopy up to 1 hour. SURGEON: Howie Diego MD. FIRE DEPARTMENT MARINE ENGINEER: Jermaine Avila PA-C; Khadra Obrien PA-C - Of note, a skilled preschool assistant principal was critical for this case to aid in patient positioning, tissue retraction, limb manipulation/positioning, and closure. ANESTHESIA: General endotracheal anesthetic EBL: 500 mL IMPLANTS: DePuy J&J uncemented total hip [place] cup size 52, hole eliminator, +4 neutral liner Actis stem, high offset, size 7 -2 mm ceramic 36mm head COMPLICATIONS: None evident INDICATIONS: The patient is a pleasant 74-year-old female who has experienced severe right hip pain and difficulty bearing weight. Workup included x-rays which revealed severe osteoarthrosis in the hip. Given the deformity, the dysfunction, and the pain, as well as the failure of nonoperative management, recommendation was made for surgery. FINDINGS: Full-thickness chondral loss diffusely throughout the femoral head and acetabulum. Flattening to the femoral head/deformity noted. Osteophytes on the femoral head/neck junction. Moderate effusion upon entering the joint. DESCRIPTION OF PROCEDURE: Following a thorough discussion of risks, benefits, and alternatives consent was obtained and the right hip was marked. The patient was brought to the operating room and placed supine on the operating table. Induction of anesthesia was undertaken. 2 g IV Ancef and 1 g tranexamic acid was administered within 1 hr of incision preoperatively. Proper time-out was performed identifying proper patient, site, procedure. The operative extremity was prepped and draped in the appropriate sterile fashion using ChloraPrep after the patient was positioned on the [place] table with head in neutral alignment and all bony prominences well padded. C-arm fluoroscopic imaging was utilized to confirm proper pelvis rotation and position, and to get true AP films of both the contralateral left, and the affected right hip. This is for comparison. A longitudinal incision was made starting approximately 1 cm distal to the ASIS, and 2-3 cm lateral. The incision was extended distally aiming toward the fibular head. Sharp incision through skin and bovie cautery through the subcutaneous tissue allowed identification of the TFL fascia. This was sharply divided, and the fascia bluntly released from the muscle fibers as we dissected medial. Upon coming to the medial border, we were able to retract the TFL laterally, and penetrated the deeper fascia and identify the crossing circumflex vessels. These were ligated/cauterized. The rectus was elevated from the capsule, and retractors placed laterally and medially along the femoral neck to help with visualization of the capsule. We then performed an inverted T capsulotomy. The capsule was tagged for later repair. Retractors were placed inside the capsule. The femoral neck was visualized after releasing medially down to the lesser trochanter, along the saddle laterally, and up onto the acetabulum. The femoral neck cut was made in line with our preoperative templating. The head was removed in a single piece, and sized. We turned our attention to acetabular preparation. Initially, the labrum was resected from around the perimeter, the pulvinar was excised, allowing us to visualize the false wall. We started the reaming with a 43 mm reamer. This was medialized down to the true wall. We then enlarged our reamers sequentially up to one size less than the selected cup size. We trialed at the same size and found it to have an excellent fit. The selected cup was then opened, inserted, and impacted in line with the goal of 40? of abduction, and 20-25? of anteversion. This was confirmed on C-arm fluoroscopic imaging to be in the appropriate/goal position. Once the cup was placed we placed a hole eliminator and a liner consistent with preop planning. Attention was turned to the femoral preparation. The limb was extended, externally rotated, and adducted. The posteromedial capsule was released, as retractors were placed allowing excellent access to the proximal femur. Initially a gill box tender was followed by canal finder followed by various broaches. We broached sequentially up to the size noted above, found it to have excellent rotational control, and trialing various heads and necks, revealed that appropriate neck offset, and the above noted head size provided the greatest stability, and adventist of length, and offset. C-arm fluoroscopic imaging confirmed position of the stem, as well as leg lengths, which were compared with the pre procedure all fluoroscopic images. Trial implants were removed, the real femoral stem inserted, as was the appropriate head. After reducing, the leg was placed through range of motion and stability was confirmed anterior, posterior, and lateral. A 3 min Betadine soak was then performed, and thorough irrigation with normal saline followed. Closure of the capsule was performed with #1 PDS. Bleeding was confirmed to be controlled at this stage, and the TFL fascia was closed with #0 strata fix. Subcutaneous, and subcuticular closure was performed with 2-0 Stratafix and 4-0 Stratafix, respectively. Dressings were applied, and the patient was awoken from anesthesia and transferred the PACU in stable condition. A skilled preschool assistant principal was critical for this case to aid in patient positioning, tissue retraction, acetabular and proximal femoral exposure, limb manipulation/positioning, dislocation/relocation, patient safety, and closure. * Again, 33% added time and difficulty for this case due to the patient's body habitus. BMI 41.2 (morbidly obese) along with 4 cm of subcutaneous fat prior to accessing the deeper muscular fascia required longer retractors and more assistants to complete the case. PLAN: 1. Weight bear as tolerated operative extremity. 2. 23 hr perioperative antibiotics. 3. Ice. 4. PT/OT consults for ambulation assistance/mobility education. 5. Social work consult for discharge planning. 6. DVT prophylaxis with at SCDs and Xarelto x5 days followed by aspirin for a total of 1 month.
--- NOTE | 2025-05-21 11:29 | P.ANES_ITS ---
Anesthesia Charges Start Date/Time Anesthesia Start Date: 05/21/25 Anesthesia Start Time: 08:46 Stop Date/Time Anesthesia Stop Date: 05/21/25 Anesthesia Stop Time: 11:32 Summary Extremes of Age - Over 70 or under 1: CHEF MANAGER Coding CPT Codes CPT Codes: ANESTH HIP ARTHROPLASTY - 11519 ([id number]) P3 - PATIENT W/SEVERE SYS DISEASE, QK - SECURITY MESSENGER 2-4 CNCRNT ANES PROC, QX - CHEF MANAGER SVC W/ MD MED DIRECTION Additional Codes: Summary - Extremes of Age - Over 70 or under 1: CHEF MANAGER ([id number])
--- NOTE | 2025-05-21 11:29 | W.ANESCHARGE ---
Anesthesia Charges Start Date/Time Anesthesia Start Date: 05/21/25 Anesthesia Start Time: 08:46 Stop Date/Time Anesthesia Stop Date: 05/21/25 Anesthesia Stop Time: 11:32 Summary Extremes of Age - Over 70 or under 1: PAIN MEDICINE PHYSICIAN Coding CPT Codes CPT Codes: ANESTH HIP ARTHROPLASTY - 79030 ([id number]) P3 - PATIENT W/SEVERE SYS DISEASE, QK - MANAGEMENT LECTURER 2-4 CNCRNT ANES PROC, QX - PAIN MEDICINE PHYSICIAN SVC W/ MD MED DIRECTION Additional Codes: Summary - Extremes of Age - Over 70 or under 1: PAIN MEDICINE PHYSICIAN ([id number])
--- NOTE | 2025-05-21 11:51 | SUR.PHASEI ---
Patient came into PACU moaning, eventually stating her back hurt. Anesthesia gave Toradol. After toradol given, she is complaining of back and leg pain at a level 7. Offered pain medication. Patient said she has back pain at home, but no leg pain. Continues moaning and verbally stating uncomfortable. Taking ice chips. Right hip X-ray completed.
--- NOTE | 2025-05-21 12:32 | P.NB_ITS ---
Nerve Block Nerve Block Time Seen by Provider: 08:00 Date Seen: 05/21/25 Type of block requested by surgeon for post-operative analgesia: ALMA/LFCN Side: right Time out performed: Yes Verification of patient name: Yes Verification of date of : Yes Site marking: site marked Name of person performing procedure: George Continuous monitoring Was continuous monitoring of O2 sat, B/P, groundwater monitoring technician, recorded every 15 minutes?: Yes Procedure Checklist: sterile prep, needles and gloves Ultrasound guided. Images saved: Yes Medications given in 5ml increments after negative aspiration: Ropivicaine %: 0.5 mL: 30 Needle gauge: 20 Precedex (mcg): 25 Patient tolerated procedure well: Yes Additional comments: Needle noted below psoas tendon needle noted adjacent to LFCN Block Charges Block Charge (with Pro Fee): Other Periph Nerve Block Use of Ultrasound Machine for Block: Yes- US Guidance/pain block
--- NOTE | 2025-05-21 12:33 | P.ANES_ITS ---
Anesthesia Charges Start Date/Time Anesthesia Start Date: 05/21/25 Anesthesia Start Time: 08:46 Stop Date/Time Anesthesia Stop Date: 05/21/25 Anesthesia Stop Time: 11:32 Summary Extremes of Age - Over 70 or under 1: MDA Coding CPT Codes CPT Codes: ANESTH HIP ARTHROPLASTY - 19266 ([id number]) QK - SUGAR REFINERY SUPERVISOR 2-4 CNCRNT ANES PROC, QX - AIRPLANE NAVIGATOR SVC W/ MD MED DIRECTION, P3 - PATIENT W/SEVERE SYS DISEASE Additional Codes: Summary - Extremes of Age - Over 70 or under 1: MDA ([id number])
--- NOTE | 2025-05-21 15:11 | PC.NURSE ---
End of Shift: Patient pleasant and cooperative. Patient vitally stable, lungs clear, BS WNL, IV running LR at 75. Patient right hip dressing C/D/I, active ice applied. Patient rates hip paint 5/10, scheduled tylenol given and 5 mg of oxy given once. Patient is napping in bed, has not urinated, and is taking in water and ice chip.
[2025-05-21] MEDS: CEFAZOLIN 1 GM in 0.9 % SODIUM CHLORIDE Mini-bag 100 ML IVPB ×2 (15:33→23:00)
--- NOTE | 2025-05-21 16:22 | PM.IMCN1 ---
Date of Consult Consult date: 05/21/25 Requesting Physician: Orthopedics Primary Care Provider: Myla Kendall CNP Consult Narrative Reason for consult: Medical management of comorbidities Narrative: Sol Power is a 74 year old female who presented to the hospital today for an elective right hip replacement with Dr. Diego of Orthopedic surgery. There were no surgical or anesthetic complications noted during procedure. Patient's H&P reviewed, PCP is Myla Kendall in [place]. Past medical history significant for: Osteoarthritis, recent CVA (December 2024; s/p 1 month of DAPT, currently on aspirin monotherapy. No residual deficits). History of blood clots: No History of blood transfusions: No Postoperative plan: Home with assistance from her children Review of Systems Status of ROS: Reports: 10 or more systems reviewed and unremarkable except as noted in History and below [facility] Medical History (Updated 05/21/25 @ 16:27 by Susan Bravo MD) Mass of pineal region ?G93.89 - Other specified disorders of brain (ICD-10) Health care directive on file (08/04/21) ?Z78.9 - Other specified health status (ICD-10) Morbid obesity with BMI of 40.0-44.9, adult ?E66.01 - Morbid (severe) obesity due to excess calories (ICD-10) ?Z68.41 - Body mass index [BMI] 40.0-44.9, adult (ICD-10) Primary osteoarthritis of right hip ?M16.11 - Unilateral primary osteoarthritis, right hip (ICD-10) Greater trochanteric pain syndrome of right lower extremity ?M25.551 - Pain in right hip (ICD-10) Stroke (01/02/25) ?I63.9 - Cerebral infarction, unspecified (ICD-10) Back problem ?M53.9 - Dorsopathy, unspecified (ICD-10) Hypercholesteremia ?E78.00 - Pure hypercholesterolemia, unspecified (ICD-10) Obesity ?E66.9 - Obesity, unspecified (ICD-10) Arthritis ?M19.90 - Unspecified osteoarthritis, unspecified site (ICD-10) Encounter for preoperative screening laboratory testing for severe acute respiratory syndrome coronavirus 2 (SARS-CoV-2) ?Z01.812 - Encounter for preprocedural laboratory examination (ICD-10) ?Z20.822 - Contact with and (suspected) exposure to covid-19 (ICD-10) Surgical History (Updated 05/21/25 @ 16:25 by Susan Bravo MD) S/P hip replacement ?Z96.649 - Presence of unspecified artificial hip joint (ICD-10) 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 Social History (Updated 11/23/22 @ 14:47 by Mark Farias MD) Narrative: She lives alone in a town home in [place]. She has 1 step to get into the house but otherwise lives on 1 level. After her knee surgery last year this went quite well. She has people were going to come and help her when she is at home. What is your current living situation?: I presently have a place to live Problems where you live: no known problems In the past 12 months, utilities in danger of being shut off: no In past 12 months, lack of transportation kept you from medical appts, meetings, work, or getting things needed for daily living: no In the past 12 mos, have been you worried that your food would run out before you had money to buy more?: never true In the past 12 mos, the food you bought just didn't last and you didn't have money to buy more?: never true Smoking Status: Never smoker Do you use any of these nicotine containing products: None Second hand tobacco smoke exposure: No How often do you have a drink containing alcohol: monthly or less Alcohol type: beer and wine How many standard drinks containing alcohol do you have on a typical day: 1 or 2 How often do you have six or more drinks on one occasion: Never AUDIT-C Alcohol total score: 1 Non-prescribed substance use: denies use Caffeine: No How often does anyone, including family, friends and others, physically hurt you: never How often does anyone, including family, friends and others, insult or talk down to you: never How often does anyone, including family, friends and others, threaten you with harm: never How often does anyone, including family, friends and others, scream or curse at you: never service: No Meds Home Medications and Allergies Home Medications ?Medication ?Instructions ?Recorded ?Confirmed ?Type calcium 500 mg (as 1 tab PO DAILY 03/11/22 05/19/25 History carbonate)-vitamin D3 10 mcg (400 unit) tablet glucosamine-chondroitin 250 mg-200 1 tab PO DAILY 03/11/22 05/19/25 History mg tablet (Osteo Bi-Flex) omega-3 fatty acids 1,000 mg 1,000 mg PO DAILY 03/11/22 05/19/25 History capsule vitamin A-vitamin C-vit E-min 1 tab PO DAILY 03/11/22 05/19/25 History tablet rosuvastatin 10 mg tablet 10 mg PO HS 10/09/24 05/19/25 History aspirin 81 mg tablet 81 mg PO QDAY 04/18/25 05/19/25 History tramadol 50 mg tablet 50 - 100 mg (1 - 2 x 50 mg) PO 04/18/25 05/19/25 Rx Q6-8H PRN right hip pain #30 tabs acetaminophen 500 mg tablet 500 - 1,000 mg (1 - 2 x 500 mg) PO 05/21/25 Rx Q4-6H PRN pain #100 tabs aspirin 81 mg tablet 81 mg PO BID 25 days #50 tabs 05/21/25 Rx melatonin 5 mg tablet 5 mg PO HS PRN 05/21/25 05/21/25 History oxycodone 5 mg tablet 2.5 - 5 mg (0.5 - 1 x 5 mg) PO 05/21/25 Rx Q4-6H PRN pain #42 tabs rivaroxaban 10 mg tablet (Xarelto) 10 mg PO DAILY 4 days #4 tabs 05/21/25 Rx sennosides 8.6 mg tablet (Senna 8.6 - 17.2 mg (1 - 2 x 8.6 mg) PO 05/21/25 Rx Lax) BID PRN constipation #60 tabs Allergies Allergy/AdvReac Type Severity Reaction Status Date / Time No Known Allergies Allergy Verified 05/13/25 14:28 Exam Narrative: Exam Narrative: GEN: Alert and oriented, sitting comfortably in bedside chair, nontoxic HEENT: EOMIs bilaterally, no scleral icterus CV: RRR, soft systolic murmur without concerning features R: LCTA bilaterally Ext: wwp, no concerning edema Skin: No concerning skin lesions or rashes on exposed skin Neuro: No focal deficits, no resting tremor Psych: Appropriate Const: Vital Signs, click to edit/add: Vital Signs - 24 hr 05/21/25 07:51 05/21/25 07:58 05/21/25 08:08 Temperature 99.6 F Pulse Rate 74 71 70 Pulse Rate [Left P ulse Oximeter] Respiratory Rate 16 16 16 Blood Pressure 131/79 131/68 123/66 Blood Pressure [Ri ght Arm] Pulse Oximetry 95 96 96 Oxygen Delivery Me thod Room Air Nasal Cannula Room Air Oxygen Flow Rate 2 2 05/21/25 08:11 05/21/25 11:28 05/21/25 11:35 Temperature 97.3 F L Pulse Rate 71 76 74 Pulse Rate [Left P ulse Oximeter] Respiratory Rate 16 14 15 Blood Pressure 117/68 108/79 110/57 L Blood Pressure [Ri ght Arm] Pulse Oximetry 95 93 95 Oxygen Delivery Me thod Room Air Room Air Oxygen Flow Rate 2 05/21/25 11:40 05/21/25 11:45 05/21/25 11:50 Temperature Pulse Rate 70 64 74 Pulse Rate [Left P ulse Oximeter] Respiratory Rate 18 16 15 Blood Pressure 90/64 108/71 105/53 L Blood Pressure [Ri ght Arm] Pulse Oximetry 95 96 95 Oxygen Delivery Me thod Room Air Oxygen Flow Rate 05/21/25 11:55 05/21/25 12:00 05/21/25 12:05 Temperature Pulse Rate 69 67 64 Pulse Rate [Left P ulse Oximeter] Respiratory Rate 22 24 22 Blood Pressure 99/66 110/83 108/86 Blood Pressure [Ri ght Arm] Pulse Oximetry 97 98 97 Oxygen Delivery Me thod Oxygen Flow Rate 05/21/25 12:10 05/21/25 12:15 05/21/25 12:20 Temperature Pulse Rate 64 62 60 Pulse Rate [Left P ulse Oximeter] Respiratory Rate 20 20 20 Blood Pressure 113/61 89/73 L 107/68 Blood Pressure [Ri ght Arm] Pulse Oximetry 97 97 96 Oxygen Delivery Me thod Room Air Oxygen Flow Rate 05/21/25 12:25 05/21/25 12:30 05/21/25 12:43 Temperature 97.5 F L 97.7 F Pulse Rate 62 58 L Pulse Rate [Left P ulse Oximeter] 63 Respiratory Rate 18 16 12 Blood Pressure 113/60 108/91 H Blood Pressure [Ri ght Arm] 99/69 Pulse Oximetry 96 96 94 Oxygen Delivery Me thod Room Air Room Air Oxygen Flow Rate 05/21/25 13:00 05/21/25 13:15 05/21/25 13:30 Temperature 97.3 F L 97.6 F 97.7 F Pulse Rate Pulse Rate [Left P ulse Oximeter] 61 64 58 L Respiratory Rate 12 12 12 Blood Pressure Blood Pressure [Ri ght Arm] 121/72 123/56 L 111/66 Pulse Oximetry 94 95 91 Oxygen Delivery Me thod Room Air Room Air Room Air Oxygen Flow Rate 05/21/25 14:00 05/21/25 14:30 05/21/25 15:00 Temperature 98.1 F 97.4 F L Pulse Rate Pulse Rate [Left P ulse Oximeter] 56 L 59 L Respiratory Rate 12 12 Blood Pressure Blood Pressure [Ri ght Arm] 112/61 122/72 Pulse Oximetry 98 91 98 Oxygen Delivery Me thod Room Air Room Air Room Air Oxygen Flow Rate 05/21/25 15:30 Temperature 97.5 F L Pulse Rate Pulse Rate [Left P ulse Oximeter] 70 Respiratory Rate 16 Blood Pressure Blood Pressure [Ri ght Arm] 115/68 Pulse Oximetry 98 Oxygen Delivery Me thod Room Air Oxygen Flow Rate Assessment and Plan Assessment and plan (1) S/P hip replacement: Problem comment: - 05/21/25, Dr. Diego Status: Acute Plan - pain management and prophylaxis per orthopedic surgery team - continue home medications for comorbidities - anticipate routine postoperative course
[2025-05-21] MEDS: ROSUVASTATIN CALCIUM 10 MG TABLET PO (20:43)
[2025-05-21] MEDS: SENNOSIDES 1 TAB TABLET 2 TAB PO (20:43)
--- NOTE | 2025-05-21 23:28 | PC.NURSE ---
End of Shift: Patient pleasant and cooperative. Afebrile. Dressing to right hip C/D/I. CMS intact. Rating pain up to 5/10 and PRN Oxycodone given x1. Up to chair and bathroom with 1 assist, walker and gait belt. Tolerating regular diet with no nausea.
[2025-05-22] MEDS: ACETAMINOPHEN 500 MG TABLET 1000 MG PO ×2 (01:38→08:22)
[2025-05-22 03:00] VITALS: BP 104/64; PULSE 66; RESP 18; TEMP 36.7; O2SAT 91
--- NOTE | 2025-05-22 06:09 | PC.NURSE ---
Shift note ([id number]): Patient pleasant, alert and oriented. Ambulated to bathroom with walker and assist of one. Tolerating Regular diet. Given scheduled Tylenol and PRN Oxycodone for pain rated 4/10. Saline locked. Dressing clean, dry and intact.?
[2025-05-22 07:00] VITALS: BP 107/58; PULSE 72; RESP 18; TEMP 36.6; O2SAT 97
[2025-05-22 07:04] LABS: Hematocrit* 28.9 % (33.0-51.0); Hemoglobin* 9.6 gm/dL (12.0-16.0); Immature Granulocytes Abs Auto 0.01 K/uL (0.00-0.30); Immature Granulocytes Pct Auto 0.1 %; Mean Corpuscular HGB Conc 33 gm/dL (32-36); Mean Corpuscular Hemoglobin 32 pg (26-34); Mean Corpuscular Volume 95 fL (80-100); RDW Coefficient of Variation % 13.5 % (11.5-15.5); Red Blood Count* 3.04 m/uL (4.00-5.20); White Blood Count* 9.28 K/uL (4.50-11.00)
[2025-05-22 07:05] LABS: Lymphocytes Absolute Auto 0.60 K/uL (0.90-2.90); Slide Review Reflex No
[2025-05-22 07:15] LABS: Chloride* 104 mmol/L (96-114); Potassium* 4.3 mmol/L (3.6-5.1); Sodium* 134 mmol/L (135-149)
[2025-05-22 07:18] LABS: Anion Gap 6 mEq/L (7-15); Blood Urea Nitrogen* 13 mg/dL (7-30); Carbon Dioxide* 24 mmol/L (20-32); Creatinine* 0.7 mg/dL (0.5-1.5); Est. Creatinine Clearance* 42.62; Estimated Glomerular Filt Rate 91 ml/min
[2025-05-22 07:19] LABS: Calcium* 9.6 mg/dL (8.4-10.6); Glucose* 112 mg/dL (60-115)
[2025-05-22 08:00] VITALS: PULSE 72; RESP 18; O2SAT 97
[2025-05-22] MEDS: RIVAROXABAN 10 MG TABLET PO (08:22)
[2025-05-22] MEDS: SENNOSIDES 1 TAB TABLET 2 TAB PO (08:23)
--- NOTE | 2025-05-22 10:00 | PM.ORPN ---
Subjective Subjective Date Seen: 05/22/25 Principal diagnosis: Status postop day 1, right total hip arthroplasty - anterior approach Interval history: Patient reports doing well. No acute events over night. No longer complaining of significant back discomfort and radiating pain down her leg, which was mentioned in PACU. Pain managed with scheduled and PRN medications, ice. DVT prophylaxis: Rivaroxaban, SCDs, walking. Denies fevers, chills, aches, N/V, CP, SOB/MARTINEZ, or lightheadedness. Passing flatus. Due to recent TIA/stroke in December 2024, she has been on aspirin once daily. She will return to this aspirin regimen after 1 month of DVT prophylaxis for this hip. Ortho Exam Narrative Exam Narrative: -Patient appears comfortable in bed; no apparent acute distress. She is working with physical therapy -Alert and oriented times 3 -Operative hip swollen; soft tissues supple; no obvious erythema. Ecchymosis minimal. Warmth appropriate -Surgical dressing clean, dry, intact; no obvious drainage, no erythematous streaking peripheral to the bandage -Bilateral calves soft and supple; no significant swelling, edema, tenderness, erythema, discoloration, warmth, or palpable cords -2+ DP/PT pulses, intact dermatomes and myotomes distally (5/5 strength). No numbness about the lateral femoral cutaneous nerve distribution. Const Vital Signs, click to edit/add: Vital Signs - 24 hr 05/21/25 11:28 05/21/25 11:35 05/21/25 11:40 Temperature 97.3 F L Pulse Rate 76 74 70 Pulse Rate [Left Pulse Oximeter] Respiratory Rate 14 15 18 Blood Pressure 108/79 110/57 L 90/64 Blood Pressure [Right Arm] Pulse Oximetry 93 95 95 Oxygen Delivery Method Room Air 05/21/25 11:45 05/21/25 11:50 05/21/25 11:55 Temperature Pulse Rate 64 74 69 Pulse Rate [Left Pulse Oximeter] Respiratory Rate 16 15 22 Blood Pressure 108/71 105/53 L 99/66 Blood Pressure [Right Arm] Pulse Oximetry 96 95 97 Oxygen Delivery Method Room Air 05/21/25 12:00 05/21/25 12:05 05/21/25 12:10 Temperature Pulse Rate 67 64 64 Pulse Rate [Left Pulse Oximeter] Respiratory Rate 24 22 20 Blood Pressure 110/83 108/86 113/61 Blood Pressure [Right Arm] Pulse Oximetry 98 97 97 Oxygen Delivery Method 05/21/25 12:15 05/21/25 12:20 05/21/25 12:25 Temperature Pulse Rate 62 60 62 Pulse Rate [Left Pulse Oximeter] Respiratory Rate 20 20 18 Blood Pressure 89/73 L 107/68 113/60 Blood Pressure [Right Arm] Pulse Oximetry 97 96 96 Oxygen Delivery Method Room Air 05/21/25 12:30 05/21/25 12:43 05/21/25 13:00 Temperature 97.5 F L 97.7 F 97.3 F L Pulse Rate 58 L Pulse Rate [Left Pulse Oximeter] 63 61 Respiratory Rate 16 12 12 Blood Pressure 108/91 H Blood Pressure [Right Arm] 99/69 121/72 Pulse Oximetry 96 94 94 Oxygen Delivery Method Room Air Room Air Room Air 05/21/25 13:15 05/21/25 13:30 05/21/25 14:00 Temperature 97.6 F 97.7 F 98.1 F Pulse Rate Pulse Rate [Left Pulse Oximeter] 64 58 L 56 L Respiratory Rate 12 12 12 Blood Pressure Blood Pressure [Right Arm] 123/56 L 111/66 112/61 Pulse Oximetry 95 91 98 Oxygen Delivery Method Room Air Room Air Room Air 05/21/25 14:30 05/21/25 15:00 05/21/25 15:00 Temperature 97.4 F L Pulse Rate Pulse Rate [Left Pulse Oximeter] 59 L 70 Respiratory Rate 12 16 Blood Pressure Blood Pressure [Right Arm] 122/72 Pulse Oximetry 91 98 Oxygen Delivery Method Room Air Room Air 05/21/25 15:30 05/21/25 16:30 05/21/25 17:30 Temperature 97.5 F L 97.3 F L 97.6 F Pulse Rate Pulse Rate [Left Pulse Oximeter] 70 62 68 Respiratory Rate 16 16 16 Blood Pressure Blood Pressure [Right Arm] 115/68 120/69 127/85 Pulse Oximetry 98 94 97 Oxygen Delivery Method Room Air Room Air Room Air 05/21/25 18:30 05/21/25 23:51 05/21/25 23:51 Temperature 97.6 F 97.6 F Pulse Rate Pulse Rate [Left Pulse Oximeter] 67 66 Respiratory Rate 16 17 Blood Pressure Blood Pressure [Right Arm] 124/63 124/68 Pulse Oximetry 95 95 94 Oxygen Delivery Method Room Air Room Air Room Air 05/22/25 03:00 05/22/25 07:00 05/22/25 08:00 Temperature 98.0 F 97.9 F Pulse Rate Pulse Rate [Left Pulse Oximeter] 66 72 72 Respiratory Rate 18 18 18 Blood Pressure Blood Pressure [Right Arm] 104/64 107/58 L Pulse Oximetry 91 97 Oxygen Delivery Method Room Air Room Air 05/22/25 08:00 Temperature Pulse Rate Pulse Rate [Left Pulse Oximeter] Respiratory Rate 18 Blood Pressure Blood Pressure [Right Arm] Pulse Oximetry 97 Oxygen Delivery Method Room Air Assessment and Plan Assessment and plan (1) S/P hip replacement: Problem details: - 05/21/25, Dr. Diego Status: Acute Assessment and Plan: - Complete 23 hour perioperative antibiotics. - PT/OT consult for education and assistance. - Social work consult for discharge planning - Prescribed analgesics as needed - DVT prophylaxis: Rivaroxaban for 5 days, 81 mg aspirin by mouth twice daily, walking, and SCDs - Anticipation is for discharge to home with family/friends today 05/22/2025 if the patient remains medically stable, pain is controlled, and they are safe with mobilization.
--- NOTE | 2025-05-22 13:10 | PC.NURSE ---
Nursing Care Hours: [id number] Pt this shift calm and cooperative, alert and oriented. Pain tolerated, managed with PO meds. Pedal pulses present. Bandage CDI. Denies nausea and SOB. Ax1 with walker and gaitbelt tolerated well. IV removed for discharge, forms signed, instructions went over with pt and adult son. Wheeled out to vehicle in stable condition.
== END 2025-05-22 11:20 | disposition home or self-care (01) ==
LOC: OR 06:47 → MEDSURG 06:48
PROVIDERS: Family Medicine; PCP Family Medicine; Visit Provider Orthopaedic Surgery Sports Medicine
PROC: (CPT 27130; principal; 2025-05-21 09:00)
DX: M16.11 Unilateral primary osteoarthritis, right hip (principal); G89.18 Other acute postprocedural pain; E66.01 Morbid (severe) obesity due to excess calories; Z68.41 Body mass index [BMI] 40.0-44.9, adult; Z86.73 Personal history of transient ischemic attack (TIA), and cerebral infarction without residual deficits; Z79.82 Long term (current) use of aspirin
CPT/HCPCS: 27130; 01214; 36415; 64450; 73501; 76000; 76942; 80048; 85025; 86850; 86900; 86901; 97110; 97116; 97161; 97165; 97530; 97535; 99100; A9270; C1776; J0330; J0690; J1100; J1171; J1885; J2250; J2371; J2405; J2704; J2795; J3010; J3490; J7120

== ENCOUNTER 2025-07-11 07:30 | Outpatient (RCR) | payer MEDICARE, BC, SELFPAY ==
--- NOTE | 2025-05-29 11:58 | PT.OPEX ---
PT [place] Outpatient Eval PT [facility] Outpatient Eval Start: 05/28/25 15:20 Freq: Status: Active Protocol: Document 05/29/25 07:34 HLA (Rec: 05/29/25 11:55 HLA [id number]) E-signed By Keisha Fonseca, PT, DPT Physical Therapy Outpatient Evaluation Insurance Information Recert Due Date 08/26/25 Insurance Name Medicare B,[employer] Medical Diagnosis R ant MICHAEL Treating Diagnosis weakness, impaired amb, impaired balance after R ant MICHAEL Referring MD Diego Subjective Preferred Name Glenna Subjective Glenna has some numbness R knee and pain R hip more than she anticipated, pain is going down each day, however. She has been walking short bouts in her home with the walker and doing her ex. She uses the ice pack 4-6x/day and takes tylenol and oxy for pain Pain Comments pain R hip in groin mainly Date of Next 06/03/25 Physician Visit Date of Surgery (If 05/21/25 applicable) Current Work Status Retired Precautions Treatment hx stroke residual effects Precautions/ Contraindications Weight Bearing Weight Bear as Tolerated Status Therapy Limitations/ Not Limited Systems Review Objective Range of Motion UEs WNL (mild decrease R shldr elevation from previous TSA) L LE 10-110 flex, decreased hip rotation otherwise full R hip 10-95 flex, abd 0-20, IR 0-10, ER 0-15, knee full , ankle full Strength 3+/5 R hip, knee 4/5 Swelling mild swelling over incision, bandage in place Balance & Gait Gt with flexed hips, elevated on R hip, uses ww x 150 feet x 2 reps Activity level instructed for home stairs step to pattern, holds door frames at home balance fair with walker Posture flexed at B hips, elevated R hip Sensation/Reflexes intact to light touch UEs/LEs Functional Test LEFS 23/80 or 28.7% Performed & Score Assessment Assessment/ Glenna is a 74-year-old female with hx R greater Impression trochanteric pain, underwent PT earlier this year until she had a stroke and then stopped PT. Hx pineal region mass, monitored but no current treatments, back pain, scoliosis, osteoarthritis, R TKA and R TSA. She was having increased R hip pain walking and needed a walker , underwent a R MICHAEL on 05/21/25. She returned to her [facility] home, 1 step entry with son/dtr/sibling support . She arrives today using a ww, flexed at hips. Pain is mild, improved from moderate earlier this week. She has a step-in shower which family modified for her and she has current supervision with that. Other ADLs are going ok. She has been taking Tylenol at home, .5-1 oxycodone 2x/day. Exercises are going ok. She is using the walker more frequently, goal is to get off the walker, cut her own toenails, put her own sock on and walk around her cul-de-sac unassisted and return to her gym where she rides recumbent bike 30-45 min, uses machines for strengthening 2-3x/week. Primary Functional impaired ROM R hip, impaired strength, impaired Limitations transfers, impaired amb, impaired stairs, impaired mobility Plan of Care Rehabilitation Good Potential Physical Therapy Within 6 weeks Goals 1. Pt will amb level surfaces 20 min without an assistive device and no evidence of limp. 2. Pt will ascend/descend 13 stairs with railing reciprocally, safely and independently for household and community mobility. 3. Pt will demonstrate normal strength of surgical hip to prevent substitution of movement, prevent falls with mobility. 4. Pt will be independent in home ex program to promote strength and mobility and to prevent falls. Coordination/ Referral Source Communication With Treatment Plan/ Dry Needling,Electrical Stimulation,Gait Training,Ice/ Direct Interventions Cold/Vasopneumatic,Joint Mobilization,Manual Therapy, Neuromuscular Re-ed,Orthotics/Braces,Self-Care/Home Management,Therapeutic Activities,Therapeutic Exercises Frequency/Duration 1x/week x 6 weeks Patient Will Be Completion of LTG(s),Skills Plateau,Independent w/HEP, Discharged From Independently Progressing Therapy Evaluation Billing Untimed Code 19 Treatment Minutes PT Eval No Charge No Complexity Low Certification Information Initial 05/29/25 Certification Date Ending Certification 08/26/25 Date Provider Signature Yes Required Provider Signature POC & Medical Necessity Shows Agreement With Physician NPI Number Write NPI# Here Physician Comment/ : Change Physician Signature Please Sign/Date Here & Date Requested
== END 2025-07-31 08:20 | disposition home or self-care (01) ==
PROVIDERS: PCP Family Medicine; Visit Provider Orthopaedic Surgery Sports Medicine
DX: Z47.1 Aftercare following joint replacement surgery (principal); Z96.641 Presence of right artificial hip joint; Z51.89 Encounter for other specified aftercare
CPT/HCPCS: 97110; 97112; 97116; 97161